=== PATIENT | female | born 1990 | race Caucasian/White ===

== ENCOUNTER 2018-09-12 13:17 | Emergency (ER) | payer MEDICAID ==
[~2018-09-12] VITALS: Ht 157.5 cm; Wt 51.8 kg
[~2018-09-12 13:17] MED LIST: FURO80TA87 PO; LEVO25TA2 PO; SACU1TAB PO
[2018-09-12 14:20] LABS: CLARITY,URINE CLOUDY (Clear); COLOR,URINE YELLOW (Yellow); GLUCOSE, URINE NEGATIVE (Neg); KETONES,URINE NEGATIVE (Neg); LEUKOCYTE ESTERASE ,URINE LARGE (Neg); OCCULT BLOOD,URINE MODERATE (Neg); PROTEIN,URINE 100 mg/dl (Neg); URINE HCG NEGATIVE (NEG)
[2018-09-12 14:29] LABS: NITRITES, URINE NEGATIVE (Neg); UA COLLECTION TYPE CLN CATCH MIDSTREAM
[2018-09-12 14:31] LABS: BASOPHILS % (AUTO) 0.2 % (0-1); EOSINOPHILS % (AUTO) 0.1 % (0-6); HEMATOCRIT 40.8 % (35.0-45.0); HEMOGLOBIN 13.6 g/dl (12.0-16.0); LYMPHOCYTES # (AUTO) 1.4 X10'3 (1.1-4.8); LYMPHOCYTES % (AUTO) 9.6 % (21-51); MEAN CORPUSCULAR HEMOGLOBIN 30.4 PG (27.0-31.0); MEAN CORPUSCULAR HGB CONC 33.4 % (33.0-36.5); MEAN CORPUSCULAR VOLUME 91.2 FL (78-98); MEAN PLATELET VOLUME 9.1 FL (7.4-10.4); MONOCYTES % (AUTO) 6.5 % (2-12); NEUTROPHILS # (AUTO) 12.3 X10'3 (1.8-7.7); NEUTROPHILS % (AUTO) 83.6 % (42-75); PLATELET COUNT 282 X10'3 (140-440); RED BLOOD COUNT 4.47 X10'6 (4.20-5.60); RED CELL DISTRIBUTION WIDTH 13.5 % (11.5-14.5); WHITE BLOOD COUNT 14.7 X10'3 (4.5-11.0)
[2018-09-12 14:31] LABS: BACTERIA,URINE 1+ /HPF (Neg); SQUAMOUS EPITHELIAL CELL,UR MODERATE /LPF (FEW); WBC,URINE TNTC /HPF (0-4)
[2018-09-12] MEDS ORDERED: LEVO750T21 PO (14:40)
[2018-09-12] MEDS ORDERED: ONDA4TAB6 PO (14:40)
[2018-09-12 14:52] LABS: ALANINE AMINOTRANSFERASE 19 U/L (12-78); ALBUMIN 3.3 G/DL (3.4-5.0); ALBUMIN/GLOBULIN RATIO 0.8 (1.1-1.5); ALKALINE PHOSPHATASE 119 IU/L (46-116); ANION GAP 12 (8-16); ASPARTATE AMINO TRANSFERASE 14 U/L (10-37); BILIRUBIN,TOTAL 0.4 MG/DL (0.1-1.0); BLOOD UREA NITROGEN 7 MG/DL (7-18); BUN/CREATININE RATIO 9.1 (6.6-38.0); CALCIUM 8.4 MG/DL (8.5-10.1); CHLORIDE 97 MMOL/L (99-107); CREATININE 0.77 MG/DL (0.40-0.90); GLUCOSE 114 MG/DL (70-104); POTASSIUM 3.6 MMOL/L (3.5-5.1); SODIUM 134 MMOL/L (135-145); TOTAL PROTEIN 7.4 G/DL (6.4-8.2); eGFR > 90 ML/MIN
[2018-09-12 14:58] VITALS: BP 127/84
[2018-09-12 15:11] LABS: INR 1.1 INR; PARTIAL THROMBOPLASTIN TIME 33 SECONDS (22-32); PROTHROMBIN TIME 11.3 SECONDS (9.0-12.0)
== END 2018-09-12 15:00 | disposition home or self-care (01) ==
LOC: ER 13:18
DX: N39.0 Urinary tract infection, site not specified (principal); Z88.1 Allergy status to other antibiotic agents; Z88.5 Allergy status to narcotic agent; Z79.899 Other long term (current) drug therapy
CPT/HCPCS: 36415; 80053; 81001; 81025; 83605; 84145; 85025; 85610; 85730; 87040; 87077; 87088; 87186; 99283

== ENCOUNTER 2019-07-31 09:28 | Emergency (ER) | payer MEDICAID ==
[~2019-07-31] VITALS: Ht 157.5 cm; Wt 48.0 kg
[~2019-07-31 09:28] MED LIST changes: +ONDA4TAB6 PO
[2019-07-31 09:51] VITALS: BP 125/65
--- NOTE | 2019-07-31 10:03 | NUR ---
awaiting for ed provider.
[2019-07-31 10:16] LABS: URINE HCG NEGATIVE (NEG)
[2019-07-31 10:20] LABS: CLARITY,URINE CLEAR (Clear); COLOR,URINE YELLOW (Yellow); GLUCOSE, URINE NEGATIVE (Neg); KETONES,URINE NEGATIVE (Neg); LEUKOCYTE ESTERASE ,URINE NEGATIVE (Neg); NITRITES, URINE NEGATIVE (Neg); OCCULT BLOOD,URINE NEGATIVE (Neg); PROTEIN,URINE NEGATIVE (Neg); UA COLLECTION TYPE CLN CATCH MIDSTREAM; UROBILINOGEN,URINE 0.2 E.U/dL (0.2-1.0)
--- NOTE | 2019-07-31 10:23 | NUR ---
paolo ferrera at bedside.
== END 2019-07-31 10:42 | disposition home or self-care (01) ==
LOC: ER 09:28
DX: Z11.8 Encounter for screening for other infectious and parasitic diseases (principal); R35.0 Frequency of micturition; R31.9 Hematuria, unspecified; F17.200 Nicotine dependence, unspecified, uncomplicated; Z98.890 Other specified postprocedural states; Z88.0 Allergy status to penicillin; Z88.5 Allergy status to narcotic agent; Z88.1 Allergy status to other antibiotic agents; Z79.899 Other long term (current) drug therapy
CPT/HCPCS: 81003; 81025; 99283

== ENCOUNTER 2019-08-27 20:16 | Emergency (ER) | payer MEDICAID ==
[~2019-08-27] VITALS: Ht 157.5 cm; Wt 49.0 kg
[2019-08-27 20:26] VITALS: BP 125/89
[2019-08-27] MEDS ORDERED: CEPH250T PO (21:12)
[2019-08-27] MEDS ORDERED: MUPI22OI30 TOP (21:12)
== END 2019-08-27 21:28 | disposition home or self-care (01) ==
LOC: ER 20:17
DX: L03.211 Cellulitis of face (principal); Z98.890 Other specified postprocedural states; Z88.0 Allergy status to penicillin; Z88.5 Allergy status to narcotic agent; Z88.8 Allergy status to other drugs, medicaments and biological substances; Z79.899 Other long term (current) drug therapy
CPT/HCPCS: 99283

== ENCOUNTER 2021-02-12 01:54 | Emergency (ER) | payer MEDICAID ==
[~2021-02-12] VITALS: Ht 157.5 cm; Wt 52.5 kg
[2021-02-12] MEDS ORDERED: CLIN-117 PO (02:28)
[2021-02-12] MEDS ORDERED: clindamycin 150mg capsule PO ONE (02:30)
[2021-02-12] MEDS ORDERED: ibuprofen 200mg tablet PO ONE (02:30)
[2021-02-12 03:04] VITALS: BP 115/78
== END 2021-02-12 03:05 | disposition home or self-care (01) ==
LOC: ER 01:54
DX: K04.7 Periapical abscess without sinus (principal); F17.210 Nicotine dependence, cigarettes, uncomplicated; Z88.0 Allergy status to penicillin; Z88.1 Allergy status to other antibiotic agents; Z88.5 Allergy status to narcotic agent; Z88.8 Allergy status to other drugs, medicaments and biological substances; Z79.899 Other long term (current) drug therapy
CPT/HCPCS: 99283

== ENCOUNTER 2022-01-19 18:26 | Emergency (ER) | payer MEDICAID ==
[~2022-01-19] VITALS: Ht 157.5 cm; Wt 56.0 kg
[2022-01-19 18:36] VITALS: BP 129/94
[2022-01-19] MEDS ORDERED: ketorolac trometh inj. 60 MG/2 ML VIAL IM ONE (19:20)
[2022-01-19] MEDS ORDERED: NAPR-56 PO (19:33)
[2022-01-19] MEDS ORDERED: CYCL-1 PO (19:33)
== END 2022-01-19 19:58 | disposition home or self-care (01) ==
LOC: ER 18:26
DX: M54.6 Pain in thoracic spine (principal); F17.200 Nicotine dependence, unspecified, uncomplicated; F12.90 Cannabis use, unspecified, uncomplicated; Z98.890 Other specified postprocedural states; Z88.0 Allergy status to penicillin; Z88.1 Allergy status to other antibiotic agents; Z88.5 Allergy status to narcotic agent; Z88.8 Allergy status to other drugs, medicaments and biological substances; Z79.899 Other long term (current) drug therapy
CPT/HCPCS: 96372; 99283; J1885

== ENCOUNTER 2022-10-14 06:00 | Emergency (ER) | payer MEDICAID ==
[~2022-10-14] VITALS: Ht 157.5 cm; Wt 56.8 kg
[~2022-10-14 06:00] MED LIST changes: +CYCL-1 PO
[2022-10-14 06:06] VITALS: BP 131/88
[2022-10-14] MEDS ORDERED: CLIN150C8 PO (06:15)
[2022-10-14] MEDS ORDERED: IBUP-1984 PO (06:15)
== END 2022-10-14 06:25 | disposition home or self-care (01) ==
LOC: ER 06:01
DX: K08.89 Other specified disorders of teeth and supporting structures (principal); R22.0 Localized swelling, mass and lump, head; F12.90 Cannabis use, unspecified, uncomplicated; Z98.890 Other specified postprocedural states; Z88.0 Allergy status to penicillin; Z88.1 Allergy status to other antibiotic agents; Z88.5 Allergy status to narcotic agent; Z79.899 Other long term (current) drug therapy
CPT/HCPCS: 99283

== ENCOUNTER 2023-03-17 20:25 | Emergency (ER) | payer MEDICAID ==
[~2023-03-17] VITALS: Ht 157.5 cm; Wt 59.3 kg
[~2023-03-17 20:25] MED LIST changes: +CLIN-214 PO
[2023-03-17 20:33] VITALS: BP 126/81
[2023-03-17] MEDS ORDERED: CLIN150C2 PO (20:59)
[2023-03-17] MEDS ORDERED: clindamycin 150mg capsule PO ONE (21:00)
== END 2023-03-17 21:17 | disposition home or self-care (01) ==
LOC: ER 20:26
DX: K08.89 Other specified disorders of teeth and supporting structures (principal); Z88.0 Allergy status to penicillin; Z88.1 Allergy status to other antibiotic agents; Z88.5 Allergy status to narcotic agent; Z79.899 Other long term (current) drug therapy; F12.10 Cannabis abuse, uncomplicated
CPT/HCPCS: 99283

== ENCOUNTER 2023-08-01 11:05 | Emergency (ER) | payer MEDICAID ==
[~2023-08-01] VITALS: Ht 157.5 cm; Wt 54.2 kg
[2023-08-01 11:08] VITALS: BP 151/104; PULSE 87; TEMP 97.7; O2SAT 100
[2023-08-01] MEDS ORDERED: ketorolac trometh. 30mg/ml inj. IM ONE (11:15)
[2023-08-01] MEDS ORDERED: ondansetron 4mg rapidly disintigrating tab PO ONE (11:15)
[2023-08-01 12:20] LABS: BASOPHILS % (AUTO) 0.3 % (0-1); EOSINOPHILS # (AUTO) 0.2 X10'3 (0-0.9); EOSINOPHILS % (AUTO) 1.2 % (0-6); HEMOGLOBIN 13.6 g/dl (12.0-16.0); LYMPHOCYTES # (AUTO) 1.8 X10'3 (1.1-4.8); LYMPHOCYTES % (AUTO) 13.1 % (21-51); MEAN CORPUSCULAR HEMOGLOBIN 30.5 PG (27.0-31.0); MEAN CORPUSCULAR HGB CONC 33.3 g/dL (33.0-36.5); MEAN CORPUSCULAR VOLUME 91.7 FL (78-98); MEAN PLATELET VOLUME 9.7 FL (7.4-10.4); MONOCYTES # (AUTO) 0.7 X10'3 (0-0.9); MONOCYTES % (AUTO) 5.5 % (2-12); NEUTROPHILS # (AUTO) 10.8 X10'3 (1.8-7.7); NEUTROPHILS % (AUTO) 79.9 % (42-75); PLATELET COUNT 314 X10'3 (140-440); RED BLOOD COUNT 4.47 X10'6 (4.20-5.60); RED CELL DISTRIBUTION WIDTH 13.3 % (11.5-14.5); WHITE BLOOD COUNT 13.5 X10'3 (4.5-11.0)
[2023-08-01 12:42] LABS: ALANINE AMINOTRANSFERASE 23 U/L (12-78); ALBUMIN 4.3 G/DL (3.4-5.0); ALBUMIN/GLOBULIN RATIO 1.2 (1.1-1.5); ALKALINE PHOSPHATASE 91 IU/L (46-116); ANION GAP 10 (8-16); ASPARTATE AMINO TRANSFERASE 25 U/L (10-37); BILIRUBIN,TOTAL 0.4 MG/DL (0.1-1.0); BLOOD UREA NITROGEN 17 MG/DL (7-18); BUN/CREATININE RATIO 17.7 (10.0-20.0); CALCIUM 9.3 MG/DL (8.5-10.1); CHLORIDE 103 MMOL/L (99-107); CREATININE 0.96 MG/DL (0.40-0.90); GLUCOSE 110 MG/DL (70-104); LIPASE 20 U/L (16-77); POTASSIUM 3.6 MMOL/L (3.5-5.1); SODIUM 139 MMOL/L (135-145); TOTAL CARBON DIOXIDE 26.5 MMOL/L (24-32); TOTAL PROTEIN 7.9 G/DL (6.4-8.2); eCRCL 67 ML/MIN; eGFR 68 ML/MIN
[2023-08-01 13:43] LABS: BILIRUBIN,URINE NEGATIVE (Neg); CLARITY,URINE CLOUDY (Clear); COLOR,URINE YELLOW (Yellow); GLUCOSE, URINE NEGATIVE (Neg); KETONES,URINE 15 mg/dl (Neg); LEUKOCYTE ESTERASE ,URINE TRACE (Neg); OCCULT BLOOD,URINE LARGE (Neg); PROTEIN,URINE 30 mg/dl (Neg); UROBILINOGEN,URINE 0.2 E.U/dL (0.2-1.0)
[2023-08-01 13:46] LABS: NITRITES, URINE NEGATIVE (Neg); UA COLLECTION TYPE CLN CATCH MIDSTREAM
[2023-08-01 13:47] LABS: URINE HCG NEGATIVE (NEG)
[2023-08-01 13:48] LABS: MUCUS STRANDS MANY /LPF (Neg); SQUAMOUS EPITHELIAL CELL,UR MANY /LPF (FEW)
[2023-08-01 13:49] LABS: CAL OXALATE CRYSTALS 4+ /HPF (NEGATIVE); COARSE GRANULAR CAST 0-3 /LPF (NEGATIVE)
[2023-08-01 13:50] LABS: BACTERIA,URINE 2+ /HPF (Neg); RBC,URINE TNTC /HPF (0-2)
[2023-08-01] MEDS ORDERED: ONDA4TAB12 PO (13:51)
[2023-08-01] MEDS ORDERED: IBUP-1986 PO (13:51)
[2023-08-01] MEDS ORDERED: FLO0.4C PO (13:51)
--- NOTE | 2023-08-01 14:07 | NUR ---
pt left without dc paperwork. Called all numbers in pt chart, no working numnber available. Addendum: 08/01/23 at 1425 by [id number] pt was in parking lot, received dc paperwork.
[2023-08-01 14:51] VITALS: RESP 18
== END 2023-08-01 14:53 | disposition home or self-care (01) ==
LOC: ER 11:06
DX: R10.9 Unspecified abdominal pain (principal); F12.90 Cannabis use, unspecified, uncomplicated; Z88.0 Allergy status to penicillin; Z88.1 Allergy status to other antibiotic agents; Z88.8 Allergy status to other drugs, medicaments and biological substances; Z79.2 Long term (current) use of antibiotics; Z79.1 Long term (current) use of non-steroidal anti-inflammatories (NSAID); Z79.899 Other long term (current) drug therapy
CPT/HCPCS: 36415; 80053; 81001; 81025; 83690; 85025; 96372; 99283; J1885; 99285